=== PATIENT | female | born 1945 | race Caucasian/White ===

== ENCOUNTER 2021-05-05 18:50 | Emergency (ER) | payer OTHER, MEDICARE, BC ==
[2021-05-05 19:29] LABS: BASO # 0.06 K/mm3 (0.02-0.10); EOS # 0.04 K/mm3 (0.04-0.40); EOS % 0.4 % (1.0-5.0); HEMATOCRIT 30.4 % (37.0-47.0); HEMOGLOBIN 10.3 g/dL (12.5-16.0); LYMPH# 1.31 K/mm3 (1.50-4.00); MEAN CELL VOLUME 109 fl (78-100); MEAN CORPUSCULAR HEMOGLOBIN 37 pg (27-31); MEAN CORPUSCULAR HGB CONC 34 g/dL (33-37); MEAN PLATELET VOLUME 11.3 fl (7.4-10.4); NEU # 7.78 K/mm3 (1.40-6.50); PLATELET COUNT 177 K/mm3 (130-400); RED BLOOD COUNT 2.78 M/mm3 (4.10-5.30); RED CELL DISTRIBUTION WIDTH 19.4 % (11.5-14.5); WHITE BLOOD COUNT 9.8 K/mm3 (4.8-10.8)
[2021-05-05 19:38] LABS: POTASSIUM 3.9 mmol/L (3.5-5.1)
[2021-05-05 19:40] LABS: ALBUMIN 3.8 g/dL (3.4-4.8)
[2021-05-05 19:41] LABS: CALCIUM 8.7 mg/dL (8.3-10.5); TOTAL PROTEIN 6.5 g/dL (6.2-8.1)
[2021-05-05 19:43] LABS: TOTAL BILIRUBIN 1.1 mg/dL (0.2-1.2)
[2021-05-05] MEDS ORDERED: NORCO 325 MG-51 TA1 PO (21:29)
[2021-05-05 21:33] LABS: URINE APPEARANCE HAZY; URINE COLOR YELLOW; URINE GLUCOSE NEGATIVE (NEGATIVE); URINE PROTEIN(semi-quant) 1+ (NEGATIVE)
[2021-05-05 21:34] LABS: URINE BILIRUBIN NEGATIVE (NEGATIVE); URINE BLOOD TRACE (NEGATIVE); URINE KETONE 1+ (NEGATIVE); URINE LEUKOCYTE ESTERASE 1+ (NEGATIVE); URINE NITRATE POSITIVE (NEGATIVE); URINE UROBILINOGEN NORMAL (NORMAL)
[2021-05-05 21:45] VITALS: BP 142/78
== END 2021-05-05 21:45 | disposition home or self-care (01) ==
LOC: ED 18:50
PROVIDERS: Family Medicine
DX: S70.01XA Contusion of right hip, initial encounter (principal); M54.2 Cervicalgia; V43.62XA Car passenger injured in collision with other type car in traffic accident, initial encounter